=== PATIENT | male | born 1980 | race Caucasian/White ===

== ENCOUNTER 2016-08-09 10:20 | Emergency (ER) | payer MEDICAID ==
[~2016-08-09] VITALS: Ht 172.7 cm; Wt 91.0 kg
[2016-08-09] MEDS ORDERED: CEFTRIAXONE 1 G PREMIX 50 ML IV ONE (11:15)
[2016-08-09] MEDS ORDERED: KETOROLAC 30MG/ML VIAL IV ONE (11:15)
[2016-08-09 11:19] VITALS: BP 129/90
== END 2016-08-09 12:14 | disposition home or self-care (01) ==
LOC: ER 11:17
DX: K12.2 Cellulitis and abscess of mouth (principal)
CPT/HCPCS: 96365; 96375; 99284; J0696; J1885; Z7610